=== PATIENT | male | born 1970 | race Caucasian/White ===

== ENCOUNTER 2023-08-16 08:10 | Day surgery (SDC) | payer BC, OTHER ==
[2023-08-15 11:54] VITALS: BMI 31.3
[2023-08-16 08:24] VITALS: RESP 20
[2023-08-16 09:52] VITALS: TEMP 97.1
[2023-08-16 09:56] VITALS: BP 120/80; PULSE 86
== END 2023-08-16 09:45 | disposition home or self-care (01) ==
LOC: FASU-ENDO 08:10
PROVIDERS: ATTEND Internal Medicine Gastroenterology
PROC: 0DJD8ZZ Inspection of Lower Intestinal Tract, Via Natural or Artificial Opening Endoscopic (ICD-10-PCS; principal; 2023-08-16 08:50)
DX: Z12.11 Encounter for screening for malignant neoplasm of colon (principal)